=== PATIENT | male | born 1970 ===

== ENCOUNTER 2018-02-18 13:28 | Observation (INO) | payer OTHER ==
[2018-02-18 13:37] VITALS: BMI 24.3
[2018-02-18] MEDS ORDERED: Sodium Chloride 0.9% 1,000 ML IV STA (13:46)
--- NOTE | 2018-02-18 13:51 | ED PDOC ---
HPI: Hypertension/Hypotension Time Seen by Provider: 02/18/18 13:34 Chief Complaint (Nursing): Palpitations Chief Complaint (Provider): Palpitations History Per: Patient History/Exam Limitations: no limitations Additional Complaint(s): Pt reports intermittent palpitations since 9 AM today, associated with SOB, attempted Valsalva maneuvers without resolution. Denies CP, fever. Had SVT 3 years ago, cardiac cath negative, was started on medication (beta sal?) which he stopped after a few months. Past Medical History Reviewed: Nursing Documentation, Vital Signs Vital Signs: Last Vital Signs Temp 98 F 02/18/18 13:37 Pulse 208 H 02/18/18 13:37 Resp 18 02/18/18 13:37 BP 128/75 02/18/18 13:37 Pulse Ox 99 02/18/18 13:37 - Medical History Other PMH: SVT - Family History Family History: States: Unknown Family Hx - Social History Current smoker - smoking cessation education provided: No Alcohol: None - Allergies Allergies/Adverse Reactions: Allergies Allergy/AdvReac Type Severity Reaction Status Date / Time Penicillins Allergy RASH Verified 02/18/18 13:36 Review of Systems Constitutional: Negative for: Fever, Chills Cardiovascular: Positive for: Palpitations. Negative for: Chest Pain Respiratory: Positive for: Shortness of Breath. Negative for: Cough Gastrointestinal: Negative for: Nausea, Vomiting, Abdominal Pain, Diarrhea Neurological: Negative for: Headache, Dizziness Physical Exam - Reviewed Nursing Documentation Reviewed: Yes Vital Signs Reviewed: Yes - Physical Exam Appears: Positive for: Well, No Acute Distress Skin: Positive for: Normal Color, Warm, Dry Eye Exam: Positive for: Normal appearance, EOMI, PERRL Cardiovascular/Chest: Positive for: Tachycardia. Negative for: Irregularly Irregular Respiratory: Positive for: Normal Breath Sounds. Negative for: Rales, Rhonchi, Wheezing Extremity: Positive for: Normal ROM Neurologic/Psych: Positive for: Alert, Oriented - Laboratory Results Result Diagrams: 02/18/18 13:55 02/18/18 13:55 - ECG O2 Sat by Pulse Oximetry: 99 - Physician Consult Information Time Consulting Physican Contacted: 14:55 Physician Contacted: Ben Bryant Outcome Of Conversation: Recommends Metoprolol 12.5 mg PO q8h, echo, will consult. - Critical Care Total Time (In Min): 45 Medical Decision Making Medical Decision Makin yo male with SVT. - Adenosine - labs - EKG - CXR EKG: SVT @ 204. EKG (post-Adenosine): NSR @ 85, no ST-T changes, IRBBB. 14:05 -at bedside, recurrent SVT 200. Additional 12mg IVP Adenosine administered. Heart rate resolved, @90bpm sinus rhythm Disposition - Clinical Impression Clinical Impression: Supraventricular tachycardia - Patient ED Disposition Is Patient to be Admitted: Yes - Disposition Disposition Time: 15:00 Condition: STABLE Forms: [employer] (Eth[place]ian) - Pt Status Changed To: Hospital Disposition Of: Observation - POA Present On Arrival: None
[2018-02-18 14:09] LABS: BASO % 0.6 % (0.0-2.0); EOS # 0.2 K/uL (0.0-0.7); EOS % 2.3 % (0.0-4.0); HEMOGLOBIN 14.7 g/dL (12.0-18.0); LYMPH # 2.4 K/uL (1.0-4.3); LYMPH % 31.8 % (20.0-40.0); MEAN CELL VOLUME 86.6 fl (80.0-94.0); MEAN CORPUSCULAR HEMOGLOBIN 27.6 pg (27.0-31.0); MEAN CORPUSCULAR HGB CONC 31.9 g/dL (33.0-37.0); MEAN PLATELET VOLUME 9.8 fl (7.2-11.7); MONO # 0.7 K/uL (0.0-0.8); NEUT # 4.3 K/uL (1.8-7.0); NEUT % 56.3 % (50.0-75.0); NRBC % 0.1 % (0.0-0.0); RBC 5.31 Mil/uL (4.40-5.90); RED CELL DISTRIBUTION WIDTH 13.3 % (11.5-14.5); WHITE BLOOD COUNT 7.6 K/uL (4.8-10.8)
--- NOTE | 2018-02-18 14:12 | RAD ---
HISTORY: SVT COMPARISON: No prior. FINDINGS: LUNGS: No active pulmonary disease. PLEURA: No significant pleural effusion identified, no pneumothorax apparent. CARDIOVASCULAR: Normal. OSSEOUS STRUCTURES: No significant abnormalities. VISUALIZED UPPER ABDOMEN: Normal. OTHER FINDINGS: None. IMPRESSION: No active disease.
[2018-02-18 14:18] LABS: ALB/GLOB RATIO 1.2 (1.0-2.1); ALBUMIN 4.5 g/dL (3.5-5.0); ALT/SGPT 46 U/L (21-72); AST/SGOT 27 U/L (17-59); BLOOD UREA NITROGEN 20 mg/dl (9-20); CALCIUM 9.6 mg/dL (8.4-10.2); GFR AFRICAN-AMERICAN > 60; GFR NON-AFRICAN AMERICAN > 60; PARTIAL THROMBOPLASTIN TIME 33.8 Seconds (25.6-37.1); PROTHROMBIN TIME 10.8 Seconds (9.8-13.1)
[2018-02-18 15:10] LABS: URINE BILIRUBIN NEGATIVE (NEGATIVE); URINE BLOOD NEGATIVE (NEGATIVE); URINE CLARITY CLEAR (Clear); URINE COLOR COLORLESS (YELLOW); URINE GLUCOSE (UA) NEG (Normal); URINE LEUKOCYTE ESTERASE NEG Leu/uL (Negative); URINE PROTEIN NEGATIVE (NEGATIVE); URINE UROBILINOGEN 0.2-1.0 mg/dL (0.2-1.0)
--- NOTE | 2018-02-18 15:54 | CARD ---
APPROVED REPORT EXAM: Two-dimensional and M-mode echocardiogram with Doppler and color Doppler. Other Information Quality : GoodRhythm : NSR INDICATION Abnormal EKG/Arrhythmia SVT 2D DIMENSIONS IVSd1.03 (0.7-1.1cm)LVDd5.14 (3.9-5.9cm) LVOT Diameter2.51 (1.8-2.4cm)PWd1.03 (0.7-1.1cm) IVSs1.07 (0.8-1.2cm)LVDs4.07 (2.5-4.0cm) FS (%) 20.8 %PWs1.26 (0.8-1.2cm) M-Mode DIMENSIONS Left Atrium (MM)4.09 (2.5-4.0cm)IVSd0.85 (0.7-1.1cm) Aortic Root3.09 (2.2-3.7cm)LVDd5.68 (4.0-5.6cm) Aortic Cusp Exc.2.12 (1.5-2.0cm)PWd0.94 (0.7-1.1cm) IVSs1.44 cmFS (%) 27 % LVDs4.12 (2.0-3.8cm)PWs1.21 cm Mitral Valve MV E Abjwbjks90.9cm/sMV DECEL [id number] A Txjscino18.4cm/s MV EIJ61wwT/A ratio1.0MVA (PHT)4.16cm2 TDI Lateral E' Peak V10.35cm/sMedial E' Peak V6.44cm/sE/Lateral E'5.2 E/Medial E'8.4 Pulmonary Valve PV Peak Nnpoxcwo898.5cm/s LEFT VENTRICLE The left ventricle is normal size. There is normal left ventricular wall thickness. Left ventricle systolic function is moderately to severely impaired. The Ejection Fraction is 35-40%. There is global hypokinesis of the left ventricle. Transmitral Doppler flow pattern is Grade I-abnormal relaxation pattern. RIGHT VENTRICLE The right ventricle is borderline dilated. There is normal right ventricular wall thickness. The right ventricular systolic function is normal. ATRIA The left atrium size is normal. The right atrium size is normal. AORTIC VALVE The aortic valve is mildly thickened. No aortic regurgitation is present. There is no aortic valvular stenosis. MITRAL VALVE The mitral valve is mildly thickened. There is no mitral valve stenosis. Mitral regurgitation is trace. TRICUSPID VALVE The tricuspid valve is normal in structure. There is no tricuspid valve regurgitation noted. PULMONIC VALVE The pulmonary valve is normal in structure. There is no pulmonic valvular regurgitation. GREAT VESSELS The aortic root is normal in size. The IVC is normal in size and collapses >50% with inspiration. PERICARDIAL EFFUSION The pericardium appears normal. <Conclusion> The left ventricle is normal size. There is normal left ventricular wall thickness. Left ventricle systolic function is moderately to severely impaired. The Ejection Fraction is 35-40%. There is global hypokinesis of the left ventricle. Transmitral Doppler flow pattern is Grade I-abnormal relaxation pattern.
--- NOTE | 2018-02-18 18:22 | CARD ---
APPROVED REPORT EKG Measurement Heart [id number] <Conclusion> Normal sinus rhythm Incomplete right bundle branch block Minimal voltage criteria for LVH, may be normal variant Borderline ECG
--- NOTE | 2018-02-18 18:23 | CARD ---
APPROVED REPORT EKG Measurement Heart [id number] <Conclusion> Normal sinus rhythm Incomplete right bundle branch block Minimal voltage criteria for LVH, may be normal variant Borderline ECG
--- NOTE | 2018-02-18 20:06 | CP.PCM.CON ---
History of Present Illness - History of Present Illness History of Present Illness: 47 Y/O WITH PALP X 1 DAY. PT PRESENTED TO ER AND FOUND TO HAVE SVT WITH HR GREATER THAN 200. HE WAS GIVEN ADENOSINE 6, 12 WITH RESOLUTION. HIS SVT RECURRED AND NEEDED REPEAT ADENOSINE 12. NO RECURRENCE SINCE. PT HAD 1 EPISODE A YEAR AGO. WAS ON METOPROLOL FOR SEVERAL MONTHS THEN STOPPED B/C OF SIDE EFFECTS. NO SYNCOPE, CP, LH, DIZZINESS, N/V/D/C. PT DENIES OTHER MED ISSUES. ECHO IMAGES REVIEWED. CALCULATED CO IS 3.9 L/MIN. EF APPEARS REDUCED BC IMAGES ARE FORESHORTENED AND OFF AXIS. Past Patient History - Past Social History Alcohol: None - CARDIAC Hx Cardiac Disorders: Yes - PSYCHIATRIC Hx Substance Use: No - SURGICAL HISTORY Hx Surgeries: Yes Other/Comment: ablation. Meds Allergies/Adverse Reactions: Allergies Allergy/AdvReac Type Severity Reaction Status Date / Time Penicillins Allergy RASH Verified 02/18/18 13:36 - Medications Medications: Current Medications Aspirin (Aspirin Chewable) 81 mg PO DAILY [facility] Metoprolol Tartrate (Lopressor) 25 mg PO Q8 [facility] Results - Vital Signs Recent Vital Signs: Last Vital Signs Temp 98.0 F 02/18/18 20:05 Pulse 72 02/18/18 20:05 Resp 18 02/18/18 20:05 BP 142/80 02/18/18 20:05 Pulse Ox 96 02/18/18 20:05 - Labs Result Diagrams: 02/18/18 13:55 02/18/18 13:55 Labs: Laboratory Results - last 24 hr 02/18/18 02/18/18 02/18/18 13:55 13:55 13:55 WBC 7.6 RBC 5.31 Hgb 14.7 Hct 46.0 MCV 86.6 MCH 27.6 MCHC 31.9 L RDW 13.3 Plt Count 180 MPV 9.8 Neut % (Auto) 56.3 Lymph % (Auto) 31.8 [place] % (Auto) 9.0 Eos % (Auto) 2.3 Baso % (Auto) 0.6 Neut # (Auto) 4.3 Lymph # (Auto) 2.4 [place] # (Auto) 0.7 Eos # (Auto) 0.2 Baso # (Auto) 0.0 PT 10.8 INR 1.0 APTT 33.8 Sodium 142 Potassium 3.7 Chloride 100 Carbon Dioxide 25 Anion Gap 21 H BUN 20 Creatinine 1.0 Est GFR ( Amer) > 60 Est GFR (Non-Af Amer) > 60 Random Glucose 101 Calcium 9.6 Total Bilirubin 1.2 AST 27 ALT 46 Alkaline Phosphatase 67 Troponin I 0.0270 Total Protein 8.3 H Albumin 4.5 Globulin 3.8 Albumin/Globulin Ratio 1.2 Urine Color Urine Clarity Urine pH Ur Specific [place] Urine Protein Urine Glucose (UA) Urine Ketones Urine Blood Urine Nitrate Urine Bilirubin Urine Urobilinogen Ur Leukocyte Esterase Urine RBC (Auto) 02/18/18 15:00 WBC RBC Hgb Hct MCV MCH MCHC RDW Plt Count MPV Neut % (Auto) Lymph % (Auto) [place] % (Auto) Eos % (Auto) Baso % (Auto) Neut # (Auto) Lymph # (Auto) [place] # (Auto) Eos # (Auto) Baso # (Auto) PT INR APTT Sodium Potassium Chloride Carbon Dioxide Anion Gap BUN Creatinine Est GFR ( Amer) Est GFR (Non-Af Amer) Random Glucose Calcium Total Bilirubin AST ALT Alkaline Phosphatase Troponin I Total Protein Albumin Globulin Albumin/Globulin Ratio Urine Color Colorless Urine Clarity Clear Urine pH 7.0 Ur Specific [place] 1.005 Urine Protein Negative Urine Glucose (UA) Neg Urine Ketones Negative Urine Blood Negative Urine Nitrate Negative Urine Bilirubin Negative Urine Urobilinogen 0.2-1.0 Ur Leukocyte Esterase Neg Urine RBC (Auto) 1 Assessment & Plan (1) Supraventricular tachycardia Status: Acute - Assessment and Plan (Free Text) Plan: REPLEAT LYTES CONT METOPROLOL CHECK TFTS IF NO RECURRENCE THEN MAY BE D/C IN AM ON TOPROL NEEDS TO F/U OUTPT WITHIN 1 WEEK. LIKELY WOULD BENEFIT FROM SVT ABLATION GIVEN RAPID VENT RESPONSE DURING EPISODES. ASA 81MG UNTIL EVALUATED BY EP
[2018-02-19 06:24] LABS: T3 1.09 nmol/L (1.49-2.60)
[2018-02-19 06:44] LABS: BLOOD UREA NITROGEN 18 mg/dl (9-20); GFR AFRICAN-AMERICAN > 60; GFR NON-AFRICAN AMERICAN > 60; HDL CHOLESTEROL 31 MG/DL (30-70); LDL CHOLESTEROL 119 mg/dL (0-129)
[2018-02-19 07:57] VITALS: RESP 20
--- NOTE | 2018-02-19 09:58 | CP.PCM.HP ---
Past Patient History - Past Medical History & Family History Past Medical History?: Yes - Past Social History Smoking Status: Never Smoked - CARDIAC Hx Cardiac Disorders: Yes Other/Comment: SVT - PULMONARY Hx Respiratory Disorders: No - NEUROLOGICAL Hx Neurological Disorder: No - HEENT Hx HEENT Problems: No - RENAL Hx Chronic Kidney Disease: No - ENDOCRINE/METABOLIC Hx Endocrine Disorders: No - HEMATOLOGICAL/ONCOLOGICAL Hx Blood Disorders: No - INTEGUMENTARY Hx Dermatological Problems: No - MUSCULOSKELETAL/RHEUMATOLOGICAL Hx Musculoskeletal Disorders: No Hx Falls: No - GASTROINTESTINAL Hx Gastrointestinal Disorders: Yes Other/Comment: Umbilical Hernia - GENITOURINARY/GYNECOLOGICAL Hx Genitourinary Disorders: No - PSYCHIATRIC Hx Psychophysiologic Disorder: No Hx Substance Use: No - SURGICAL HISTORY Hx Surgeries: Yes Other/Comment: Cardiac Cath - ANESTHESIA Hx Anesthesia: Yes Hx Anesthesia Reactions: No Hx Malignant Hyperthermia: No Meds Allergies/Adverse Reactions: Allergies Allergy/AdvReac Type Severity Reaction Status Date / Time Penicillins Allergy RASH Verified 02/18/18 13:36 Results - Vital Signs Recent Vital Signs: Last Vital Signs Temp 97.9 F 02/19/18 07:56 Pulse 90 02/19/18 09:33 Resp 20 02/19/18 07:56 BP 118/75 02/19/18 09:33 Pulse Ox 97 02/19/18 07:56 - Labs Result Diagrams: 02/18/18 13:55 02/19/18 04:55 Labs: Laboratory Results - last 24 hr 02/18/18 02/18/18 02/18/18 13:55 13:55 13:55 WBC 7.6 RBC 5.31 Hgb 14.7 Hct 46.0 MCV 86.6 MCH 27.6 MCHC 31.9 L RDW 13.3 Plt Count 180 MPV 9.8 Neut % (Auto) 56.3 Lymph % (Auto) 31.8 [place] % (Auto) 9.0 Eos % (Auto) 2.3 Baso % (Auto) 0.6 Neut # (Auto) 4.3 Lymph # (Auto) 2.4 [place] # (Auto) 0.7 Eos # (Auto) 0.2 Baso # (Auto) 0.0 PT 10.8 INR 1.0 APTT 33.8 Sodium 142 Potassium 3.7 Chloride 100 Carbon Dioxide 25 Anion Gap 21 H BUN 20 Creatinine 1.0 Est GFR ( Amer) > 60 Est GFR (Non-Af Amer) > 60 Random Glucose 101 Calcium 9.6 Magnesium Total Bilirubin 1.2 AST 27 ALT 46 Alkaline Phosphatase 67 Troponin I 0.0270 Total Protein 8.3 H Albumin 4.5 Globulin 3.8 Albumin/Globulin Ratio 1.2 Triglycerides Cholesterol LDL Cholesterol Direct HDL Cholesterol Free T4 Total T3 TSH 3rd Generation Urine Color Urine Clarity Urine pH Ur Specific [place] Urine Protein Urine Glucose (UA) Urine Ketones Urine Blood Urine Nitrate Urine Bilirubin Urine Urobilinogen Ur Leukocyte Esterase Urine RBC (Auto) 02/18/18 02/19/18 02/19/18 15:00 04:55 04:55 WBC RBC Hgb Hct MCV MCH MCHC RDW Plt Count MPV Neut % (Auto) Lymph % (Auto) [place] % (Auto) Eos % (Auto) Baso % (Auto) Neut # (Auto) Lymph # (Auto) [place] # (Auto) Eos # (Auto) Baso # (Auto) PT INR APTT Sodium 140 Potassium 3.8 Chloride 103 Carbon Dioxide 25 Anion Gap 16 BUN 18 Creatinine 0.9 Est GFR ( Amer) > 60 Est GFR (Non-Af Amer) > 60 Random Glucose 92 Calcium 9.0 Magnesium 2.3 Total Bilirubin AST ALT Alkaline Phosphatase Troponin I Total Protein Albumin Globulin Albumin/Globulin Ratio Triglycerides 95 Cholesterol 181 LDL Cholesterol Direct 119 HDL Cholesterol 31 Free T4 1.15 Total T3 1.09 L TSH 3rd Generation 1.13 Urine Color Colorless Urine Clarity Clear Urine pH 7.0 Ur Specific [place] 1.005 Urine Protein Negative Urine Glucose (UA) Neg Urine Ketones Negative Urine Blood Negative Urine Nitrate Negative Urine Bilirubin Negative Urine Urobilinogen 0.2-1.0 Ur Leukocyte Esterase Neg Urine RBC (Auto) 1
--- NOTE | 2018-02-19 10:38 | CP.PCM.DIS ---
Provider - Provider Date of Admission: 02/18/18 14:56 Attending physician: Donavan Koch MD Consults: [employer] Dr Bryant Time Spent in preparation of Discharge (in minutes): 20 Diagnosis - Discharge Diagnosis (1) Supraventricular tachycardia Status: Resolved Comment: -resolved. -Cleared by marriage performer. -Metoprolol succinate 25 mg PO daily. -Aspirin 81 mg daily. -f/u [employer] Hospital Course - Lab Results Lab Results: Most Recent Lab Values WBC 7.6 K/uL (4.8-10.8) 02/18/18 13:55 RBC 5.31 Mil/uL (4.40-5.90) 02/18/18 13:55 Hgb 14.7 g/dL (12.0-18.0) 02/18/18 13:55 Hct 46.0 % (35.0-51.0) 02/18/18 13:55 MCV 86.6 fl (80.0-94.0) 02/18/18 13:55 MCH 27.6 pg (27.0-31.0) 02/18/18 13:55 MCHC 31.9 g/dL (33.0-37.0) L 02/18/18 13:55 RDW 13.3 % (11.5-14.5) 02/18/18 13:55 Plt Count 180 K/uL (130-400) 02/18/18 13:55 MPV 9.8 fl (7.2-11.7) 02/18/18 13:55 Neut % (Auto) 56.3 % (50.0-75.0) 02/18/18 13:55 Lymph % (Auto) 31.8 % (20.0-40.0) 02/18/18 13:55 [place] % (Auto) 9.0 % (0.0-10.0) 02/18/18 13:55 Eos % (Auto) 2.3 % (0.0-4.0) 02/18/18 13:55 Baso % (Auto) 0.6 % (0.0-2.0) 02/18/18 13:55 Neut # (Auto) 4.3 K/uL (1.8-7.0) 02/18/18 13:55 Lymph # (Auto) 2.4 K/uL (1.0-4.3) 02/18/18 13:55 [place] # (Auto) 0.7 K/uL (0.0-0.8) 02/18/18 13:55 Eos # (Auto) 0.2 K/uL (0.0-0.7) 02/18/18 13:55 Baso # (Auto) 0.0 K/uL (0.0-0.2) 02/18/18 13:55 PT 10.8 Seconds (9.8-13.1) 02/18/18 13:55 INR 1.0 (0.9-1.2) 02/18/18 13:55 APTT 33.8 Seconds (25.6-37.1) 02/18/18 13:55 Sodium 140 mmol/l (132-148) 02/19/18 04:55 Potassium 3.8 MMOL/L (3.6-5.0) 02/19/18 04:55 Chloride 103 mmol/L (98-107) 02/19/18 04:55 Carbon Dioxide 25 mmol/L (22-30) 02/19/18 04:55 Anion Gap 16 (10-20) 02/19/18 04:55 BUN 18 mg/dl (9-20) 02/19/18 04:55 Creatinine 0.9 mg/dl (0.8-1.5) 02/19/18 04:55 Est GFR ( Amer) > 60 02/19/18 04:55 Est GFR (Non-Af Amer) > 60 02/19/18 04:55 Random Glucose 92 mg/dL (75-110) 02/19/18 04:55 Calcium 9.0 mg/dL (8.4-10.2) 02/19/18 04:55 Magnesium 2.3 MG/DL (1.6-2.3) 02/19/18 04:55 Total Bilirubin 1.2 mg/dl (0.2-1.3) 02/18/18 13:55 AST 27 U/L (17-59) 02/18/18 13:55 ALT 46 U/L (21-72) 02/18/18 13:55 Alkaline Phosphatase 67 U/L (38-126) 02/18/18 13:55 Troponin I 0.0270 ng/mL (0.00-0.120) 02/18/18 13:55 Total Protein 8.3 G/DL (6.3-8.2) H 02/18/18 13:55 Albumin 4.5 g/dL (3.5-5.0) 02/18/18 13:55 Globulin 3.8 gm/dL (2.2-3.9) 02/18/18 13:55 Albumin/Globulin Ratio 1.2 (1.0-2.1) 02/18/18 13:55 Triglycerides 95 mg/DL (0-149) 02/19/18 04:55 Cholesterol 181 mg/dL (0-199) 02/19/18 04:55 LDL Cholesterol Direct 119 mg/dL (0-129) 02/19/18 04:55 HDL Cholesterol 31 MG/DL (30-70) 02/19/18 04:55 Free T4 1.15 ng/dL (0.78-2.19) 02/19/18 04:55 Total T3 1.09 nmol/L (1.49-2.60) L 02/19/18 04:55 TSH 3rd Generation 1.13 mIU/ML (0.46-4.68) 02/19/18 04:55 Urine Color Colorless (YELLOW) 02/18/18 15:00 Urine Clarity Clear (Clear) 02/18/18 15:00 Urine pH 7.0 (5.0-8.0) 02/18/18 15:00 Ur Specific [place] 1.005 (1.003-1.030) 02/18/18 15:00 Urine Protein Negative mg/dL (NEGATIVE) 02/18/18 15:00 Urine Glucose (UA) Neg mg/dL (Normal) 02/18/18 15:00 Urine Ketones Negative mg/dL (NEGATIVE) 02/18/18 15:00 Urine Blood Negative (NEGATIVE) 02/18/18 15:00 Urine Nitrate Negative (NEGATIVE) 02/18/18 15:00 Urine Bilirubin Negative (NEGATIVE) 02/18/18 15:00 Urine Urobilinogen 0.2-1.0 mg/dL (0.2-1.0) 02/18/18 15:00 Ur Leukocyte Esterase Neg Jenn/uL (Negative) 02/18/18 15:00 Urine RBC (Auto) 1 /hpf (0-3) 02/18/18 15:00 - Hospital Course Hospital Course: 47 yo , m, no significant PMhx, hx/o SVT 3 years ago s/p coronary catheterization negative, who was admitted for a new episode of SVT, resolved with adenosine 6mg and 12 mg. during telemetry monitoring, no new events of SVT. Patient seen by [employer] Annette. Patient seen and examined bedside this morning with Dr Koch. Patient cleared to be discharged with Metoprolol succinate 25 mg po daily and Aspirin 81 mg daily. Patient hemodynamically stable, asymptomatic Discharge Exam - Head Exam Head Exam: ATRAUMATIC, NORMOCEPHALIC - Eye Exam Eye Exam: Normal appearance - Respiratory Exam Respiratory Exam: Clear to PA & Lateral. absent: Rales, Rhonchi, Wheezes - Cardiovascular Exam Cardiovascular Exam: REGULAR RHYTHM, +S1, +S2 - GI/Abdominal Exam GI & Abdominal Exam: Normal Bowel Sounds, Soft. absent: Guarding, Rebound - Extremities Exam Extremities exam: normal inspection - Neurological Exam Neurological exam: Alert, Oriented x3 - Psychiatric Exam Psychiatric exam: Normal Affect, Normal Mood - Skin Skin Exam: Intact Discharge Plan - Follow Up Plan Condition: STABLE Disposition: HOME/ ROUTINE Additional Instructions: - follow up with Dr Koch 7 days -Follow up with marriage performer 2 weeks.
[2018-02-19 12:16] VITALS: BP 111/71; PULSE 57; TEMP 98.5; O2SAT 96
--- NOTE | 2018-02-19 19:29 | CARD ---
APPROVED REPORT EKG Measurement Heart [id number] <Conclusion> Supraventricular tachycardia Marked ST abnormality, possible inferolateral subendocardial injury Abnormal ECG
== END 2018-02-19 13:25 | disposition home or self-care (01) ==
LOC: H.ER 13:28 → H.ERHOLD 14:56 → H.TEL 18:13
PROVIDERS: ADMIT Family Medicine; ATTEND Family Medicine
DX: I47.1 Supraventricular tachycardia (principal); Z88.0 Allergy status to penicillin
CPT/HCPCS: 36415; 71045; 80048; 80053; 80061; 81003; 83735; 84439; 84443; 84480; 84484; 85025; 85610; 85730; 93005; 93306; 96374; 99285; G0378; J0153; J7040